=== PATIENT | male | born 1935 | race Caucasian/White ===

== ENCOUNTER 2018-08-08 20:10 | Emergency (ER) | payer OTHER, MEDICARE ==
[2018-08-08 21:04] VITALS: BP 132/76; PULSE 84; TEMP 98.1; BMI 23.1
--- NOTE | 2018-08-08 21:11 | PDOC ---
Attending Attestation - HPI HPI: 08/08/18 21:31 The patient is a 83 year old male, from [address] [place] [address], with a significant past medical history of DM, CVA, Dementia, HTN, [place], and Stroke (no residual deficits), who presents to the emergency department via EMS after a fall. As per EMS, the patient fell during a transfer, sliding out of his chair, and falling on to the back of his head. The patient is unable to provide any further history. Allergies: NKDA Social history: None reported PCP: Dr. Torres - Physicial Exam PE: 08/08/18 21:31 Agreed with resident exam <Jr Byrd - Last Filed: 08/09/18 00:24> - Resident Resident Name: Jevon Coley - ED Attending Attestation I have performed the following: I have examined & evaluated the patient, The case was reviewed & discussed with the resident, I agree w/resident's findings & plan - Medical Decision Making 08/09/18 00:35 82-year-old male status post low velocity so I did an fall during a transfer which was witnessed He did have some trauma to the posterior scalp CT scans of the head and cervical spine as well as x-rays of the chest and pelvis show no acute traumatic injury Plan is for discharge back to patient's facility <Celine Montenegro - Last Filed: 08/09/18 00:36> Attestations - Attestations 08/08/18 21:37 Documentation prepared by Jr Byrd, acting as medical technologist blood bank for Celine Montenegro DO, MD <Jr Byrd - Last Filed: 08/09/18 00:24>
--- NOTE | 2018-08-08 21:33 | PDOC ---
History of Present Illness - General Chief Complaint: Injury Stated Complaint: SICK Time Seen by Provider: 08/08/18 21:06 History Source: Patient Exam Limitations: Dementia - History of Present Illness Initial Comments: 08/08/18 21:19 Patient is an 83M with history of DM, CVA history, HT, dementia, [place] here today from [address] [place] [address] after a fall. EMS reports the patient had a witnessed fall during a transfer, sliding out of a chair and landing on his back, hitting his head. Patient is demented at baseline and is unable to provide a history. Fall was witnessed and there was no LOC. Patient is on aspirin and plavix, no blood thinners per [facility] paperwork. senior living contacted for this history. Past History - Past Medical History Allergies/Adverse Reactions: Allergies Allergy/AdvReac Type Severity Reaction Status Date / Time No Known Allergies Allergy Verified 08/08/18 21:04 - Suicide/Smoking/Psychosocial Hx Smoking History: Never smoked Have you smoked in the past 12 months: No Information on smoking cessation initiated: No Hx Alcohol Use: No Drug/Substance Use Hx: No Review of Systems - Review of Systems Able to Perform ROS?: No (2/2 clinical condition) *Physical Exam - Vital Signs Last Vital Signs Temp Pulse Resp BP Pulse Ox 98.1 F 84 16 132/76 98 08/08/18 20:10 08/08/18 20:10 08/08/18 20:10 08/08/18 20:10 08/08/18 20:10 - Physical Exam Comments: 08/08/18 21:33 GENERAL: Awake, alert, oriented to self and place, but not year, in no acute distress HEAD: No signs of trauma, normocephalic, atraumatic EYES: PERRLA, EOMI, sclera anicteric, conjunctiva clear ENT: Auricles normal inspection, hearing grossly normal, nares patent, oropharynx clear without exudates. Moist mucosa NECK: Normal ROM, supple, no lymphadenopathy, JVD, or masses, no midline tenderness LUNGS: No distress, speaks full sentences, clear to auscultation bilaterally HEART: Regular rate and rhythm, normal S1 and S2, no murmurs, rubs or gallops, peripheral pulses normal and equal bilaterally. ABDOMEN: Soft, nontender, normoactive bowel sounds. No guarding, no rebound. No masses BACK: No midline tenderness, no injuries noted EXTREMITIES: Normal inspection, Normal range of motion, no edema. No clubbing or cyanosis. NEUROLOGICAL: Cranial nerves II through XII grossly intact. Normal speech, no focal sensorimotor deficits SKIN: Warm, Dry, normal turgor, no rashes or lesions noted. Moderate Sedation - Procedure Monitoring Vital Signs: Procedure Monitoring Vital Signs Temperature 98.1 F 08/08/18 20:10 Pulse Rate 84 08/08/18 20:10 Respiratory Rate 16 08/08/18 20:10 Blood Pressure 132/76 08/08/18 20:10 O2 Sat by Pulse Oximetry (%) 98 08/08/18 20:10 ED Treatment Course - RADIOLOGY Radiology Studies Ordered: Category Date Time Status CERVICAL SPINE CT W/O CONTR [CT] Stat CT Scan 08/08/18 21:[address] WITHOUT CONTRAST [CT] Stat CT Scan 08/08/18 21:14 Ordered CHEST - PA [RAD] Stat Radiology 08/08/18 21:14 Ordered PELVIS [RAD] Stat Radiology 08/08/18 21:14 Ordered Medical Decision Making - Medical Decision Making 08/08/18 21:42 Patient is 83M here today with mechanical fall. Vitals normal and stable. No injuries apparent. Head/neck ct, cxr, pelvic x-ray ordered. Likely will send back to [facility]. 08/09/18 01:24 CXR/pelvis clear CT head shows ?mastoiditis, no mastoid tenderness. Otherwise normal. CT neck clear. Will discharge home. *DC/Admit/Observation/Transfer Diagnosis at time of Disposition: Fall - Discharge Dispostion Disposition: HOME Condition at time of disposition: Good Decision to Admit order: No - Referrals Referrals: Gwen Torres MD [Primary Care Provider] - - Patient Instructions Additional Instructions: Please follow up with your primary care physician. Please return if you have any new, worsening or concerning symptoms, especially chest pain, headache, or shortness of breath. - Post Discharge Activity
== END 2018-08-09 02:29 ==
LOC: JER 20:10
DX: S09.8XXA Other specified injuries of head, initial encounter (principal); W05.0XXA Fall from non-moving wheelchair, initial encounter; Y93.89 Activity, other specified; Y92.128 Other place in nursing home as the place of occurrence of the external cause; Y99.8 Other external cause status; I25.10 Atherosclerotic heart disease of native coronary artery without angina pectoris; I10 Essential (primary) hypertension; I25.2 Old myocardial infarction; E11.9 Type 2 diabetes mellitus without complications; F03.90 Unspecified dementia, unspecified severity, without behavioral disturbance, psychotic disturbance, mood disturbance, and anxiety; Z86.73 Personal history of transient ischemic attack (TIA), and cerebral infarction without residual deficits
CPT/HCPCS: 70450-TC; 71045-TC-FY; 72125-TC; 72170-TC-FY; 99281-25